=== PATIENT | male | born 1965 | race Caucasian/White ===

== ENCOUNTER → 2019-04-19 07:58 | Outpatient (CLI) | payer OTHER, MEDICAID, SELFPAY ==
[2019-04-19 09:09] LABS: Hematocrit 48.9 % (41-53); Hemoglobin 16.4 g/dL (13.5-17.5); Mean Corpuscular HGB Conc 33.5 % (30-36); Mean Corpuscular Hemoglobin 29.4 PG (26-34); Mean Corpuscular Volume 87.7 fL (80-100); Platelet Count 319 X10^3/uL (150-400); Red Blood Cell Count 5.58 X10^6/uL (4.5-5.9); Red Cell Distribution Width 13.8 % (11.6-14.8); White Blood Cell Count 10.2 X10^3/uL (4.5-11.0)
[2019-04-19 09:36] LABS: Alanine Aminotransferase 27 IU/L (21-72); Albumin 4.4 g/dL (3.5-5.0); Albumin Globulin Ratio 1.5 (1.0-2.8); Alkaline Phosphatase 53 U/L (38-126); Aspartate Aminotransferase 37 IU/L (17-59); BUN Creatinine Ratio 24.3 (6-22); Bilirubin Total 1.3 mg/dL (0.2-1.3); Blood Urea Nitrogen 17 mg/dL (9-20); Calcium 9.1 mg/dL (8.4-10.2); Carbon Dioxide 27 mmol/L (22-32); Chloride 98 mmol/L (98-107); Cholesterol 261 mg/dL (140-199); Estimated Glomerular Filt Rate > 60.0 mL/min (>60); Glucose 247 mg/dL (70-100); HDL Cholesterol 47 mg/dL (40-60); HEMOLYSIS < 15 (0-50); LDL Cholesterol Calculated 201 mg/dL (<100); Potassium 4.5 mmol/L (3.4-5.1); Sodium 135 mmol/L (137-145); Total Protein 7.4 g/dL (6.3-8.2); Triglycerides 66 mg/dL (35-150)
[2019-04-19 09:47] LABS: LDL Cholesterol Direct 197 mg/dL (<100)
[2019-04-19 16:05] LABS: Hemoglobin A1C% w Est Avg Glu 8.4 % (4.0-6.0)
== END ==
PROVIDERS: PCP Nurse Practitioner Family; Visit Provider Nurse Practitioner Family
DX: E10.9 Type 1 diabetes mellitus without complications (principal)
CPT/HCPCS: 36415; 80053; 80061; 83036; 83721; 85027

== ENCOUNTER 2024-02-24 10:58 | Emergency (ER) | payer OTHER, MEDICAID, SELFPAY ==
[2024-02-24] VITALS (23 sets, daily range): BP systolic 162–213; BP diastolic 74–115; PULSE 70–81; RESP 9–22; TEMP 37.1; O2SAT 95–99; BMI 27.1
--- NOTE | 2024-02-24 11:14 | DI.RAD.S_ITS ---
PROCEDURE: XR CHEST 1V INDICATIONS: Possible stroke TECHNIQUE: One view of the chest was acquired. COMPARISON: None. FINDINGS: Surgical changes and devices: None. Lungs and pleura: Lungs are clear. No pleural effusions or pneumothorax. Mediastinum: Mediastinal contours appear normal. Heart size is normal. Bones and chest wall: No suspicious bony lesions. Overlying soft tissues appear unremarkable. IMPRESSION: No acute cardiopulmonary abnormality is seen. Dictated by: Vin Dong M.D. on 02/24/2024 at 12:20 Approved by: Vin Dong M.D. on 02/24/2024 at 12:20
--- NOTE | 2024-02-24 11:15 | DI.CT.S_ITS ---
PROCEDURE: CT HEAD/BRAIN WO CON INDICATIONS: trouble speaking TECHNIQUE: Noncontrast 4.5 mm thick angled axial sections acquired from the foramen magnum to the vertex, with coronal and sagittal reformats. For radiation dose reduction, the following was used: automated exposure control, adjustment of mA and/or kV according to patient size. COMPARISON: [facility], CT, CT ANGIO HEAD AND NECK, 02/23/2024, 14:55. [facility], CT, CT HEAD/BRAIN WO/W CON, 02/23/2024, 14:55. FINDINGS: Image quality: Diagnostic. CSF spaces: Basal cisterns are patent. No extra-axial fluid collections. The ventricles are symmetric in size and shape. Brain: Stable areas of low density can be seen within the left frontal operculum and within the left frontal lobe, as seen on series 2 images 16 through 22. No definite superimposed hemorrhage is seen. No intracranial bleeds or masses. There is cerebral volume loss for age, with resultant ventricular and sulcal prominence. There are periventricular and deep white matter chronic small vessel ischemic changes. There is intracranial internal carotid artery atherosclerosis. Skull and face: Calvarium and visualized facial bones appear intact, without suspicious lesions. Sinuses: Visualized sinuses and mastoids are clear. IMPRESSION: Stable areas of low attenuation are seen on the left, without definite superimposed hemorrhage. Subacute infarct is suspected. Dictated by: Julio Mccray M.D. on 02/24/2024 at 10:40 Approved by: Julio Mccray M.D. on 02/24/2024 at 10:44
--- NOTE | 2024-02-24 11:31 | DI.MRI.S_ITS ---
PROCEDURE: MR HEAD/BRAIN WO CON INDICATIONS: aphaisa TECHNIQUE: Noncontrast axial T1 spin echo, axial T2 fast spin echo, sagittal and axial FLAIR, coronal T2 fast spin echo, axial gradient echo, axial diffusion and ADC through the brain. COMPARISON: [facility], CT, CT ANGIO HEAD AND NECK, 02/23/2024, 14:55. FINDINGS: Image quality: Excellent. CSF Spaces: Basal cisterns are patent. No extra-axial fluid collections. Ventricles are normal in size and shape. Brain: No intracranial masses or hemorrhage. Scott/white matter interface is normal. Brainstem appears normal. Diffusion-weighted images demonstrate moderate sized left MCA distribution infarct. There is restricted water diffusion present in the insula and left frontal lobe as well as a smaller area in the left posterior frontal parietal cortex. There is associated cytotoxic edema. The infarct relatively spares the deep white matter and focus is on the cortical brain. No evidence of hemorrhagic transformation. Minimal mass effect on the left lateral ventricle with trace midline shift measuring approximately 2 mm. No chronic ischemic insults. Normal intravascular flow voids are present. Skull and face: Calvarium has normal marrow signal. Orbits appear normal. Sinuses: Sinuses and mastoids are clear. IMPRESSION: 1. Left MCA distribution infarct as described above. Minimal mass effect on the left lateral ventricle and trace midline shift. No hemorrhagic transformation. Dictated by: Vin Dong M.D. on 02/24/2024 at 15:19 Approved by: Vin Dong M.D. on 02/24/2024 at 15:25
--- NOTE | 2024-02-24 11:46 | PC.NURSE ---
has been having symptoms for several days. code stoke not activated
--- NOTE | 2024-02-24 11:48 | ED.NEUROSD ---
HPI - Neuro Symptoms/Deficit General Chief Complaint: Neuro Symptoms/Deficit Stated Complaint: returning pt, trouble explaining what's wrong Time Seen by Provider: 02/24/24 11:10 Source: patient Mode of arrival: Ambulatory History of Present Illness HPI Narrative: Patient is a 59-year-old male history of insulin-dependent diabetes presents today for possible stroke. He was actually seen evaluated yesterday unfortunately the birthday was wrong so trying to merge the records. Patient is having a difficult time expressing why he was here. He had workup head CT CT angio and blood work he certainly was having some aphasia last known well was approximately 3 days ago, he eventually left against medical advice there was concern about an insulin pump he was given prescriptions for aspirin Plavix statin and losartan, he was evaluated by the hospitalist as well there is possible concern for cholangitis, with elevated bilirubin and AST. Today patient returns again difficulty expressing why he is here. Able to answer yes and no questions able to follow commands On Anticoagulants: No Related Data Allergies Allergy/AdvReac Type Severity Reaction Status Date / Time No Known Drug Allergies Allergy Verified 02/24/24 11:38 Review of Systems Hematologic/Lymphatic On Anticoagulants: No Patient History Social History Smoking Status: Never smoker Smoking Status: Never smoker Substance Use Type: marijuana Exam Initial Vital Signs Initial Vital Signs: Vital Signs Temperature 98.7 F 02/24/24 11:00 Pulse Rate 80 02/24/24 11:00 Respiratory Rate 18 02/24/24 11:00 Blood Pressure 213/90 H 02/24/24 11:00 Pulse Oximetry 98 02/24/24 11:00 Oxygen Delivery Method Room Air 02/24/24 11:00 GENERAL: Alert surprisingly well-appearing 59-year-old and in no acute distress. HEENT: Head atraumatic,EOMI, pupils reactive, face symmetric, moist mucous membranes CARDIOVASCULAR: Regular rate and rhythm without murmurs, rubs or gallops. RESPIRATORY: Breath sounds equal bilaterally, no wheezes rales or rhonchi. ABDOMEN: Soft, nontender. Normoactive bowel sounds all 4 quadrants. No guarding or rebound. EXTREMITIES: Normal range of motion, no clubbing or edema. Neurovascularly intact NEUROLOGICAL: Alert and oriented x4.Normal gait and speech. Cranial nerves II through XII grossly intact. Good [id number], good [id number], strength equal bilaterally, no slurring of speech with difficulty with word finding, sensation in tact to soft touch bilaterally, no visual changes, no facial droop SKIN: Warm, dry, no laceration, no petechiae, no rashes or lesions. Scores NIH Stroke Scale Level of Conciousness: Alert, keenly responsive Ask month/age: Answers neither question correctly, aphasic, stuporous, coma Open/close eyes, close hand: Performs both tasks correctly Best gaze horizontal: Normal Visual valdez: No visual loss Facial palsy: Normal symetrical movement Left arm drift: No drift for full 10 sec Right arm drift: No drift for full 10 sec Left leg drift: No drift for full 5 sec Right leg drift: No drift for full 5 sec Limb ataxia: Absent Sensory on face/arms/legs: Normal, no sensory loss Best language: Severe aphasia, not much is understood, fragmented Dysarthria: Normal Extinction or inattention: No abnormality Total NIH Stroke scale score: 4 Course Orders Ordered: ED Orders 02/24/24 11:42 Complete Blood Count AUTO DIFF Stat Comprehensive Metabolic Panel Stat ETOH [Ethanol (ETOH)] Stat Lipase Stat Magnesium Stat PTT Partial Thromboplastin Bubba Stat Pathologist Review (for CBC) Stat Prothrombin Time INR Stat Troponin & CK Cardiac Panel Stat 02/24/24 11:56 US abdomen limited Stat 02/24/24 12:06 EKG-12 Lead Stat 02/24/24 12:39 Consult to Speech Therapy Evaluate & Treat CT chest abd pel w con Stat Discontinued Medications Ondansetron HCl (Ondansetron 4 Mg/2 Ml Inj) 4 mg IV NOW PRN PRN Reason: Nausea And Vomiting Ondansetron HCl (Ondansetron 4 Mg Odt) 4 mg SL NOW PRN PRN Reason: Nausea And Vomiting Vital Signs Vital signs: Vital Signs - 8 hr 02/24/24 13:10 02/24/24 13:11 02/24/24 13:11 Pulse Rate 81 79 Respiratory Rate Blood Pressure 183/86 H Pulse Oximetry 95 97 02/24/24 13:13 02/24/24 13:13 02/24/24 13:30 Pulse Rate 76 72 Respiratory Rate Blood Pressure 177/85 H Pulse Oximetry 97 97 02/24/24 13:31 02/24/24 13:31 02/24/24 14:00 Pulse Rate 72 71 Respiratory Rate 21 Blood Pressure 171/79 H Pulse Oximetry 97 95 02/24/24 14:01 02/24/24 14:01 02/24/24 14:48 Pulse Rate 72 72 Respiratory Rate 20 19 Blood Pressure 162/74 H Pulse Oximetry 95 97 02/24/24 14:49 02/24/24 14:49 02/24/24 15:00 Pulse Rate 70 Respiratory Rate 18 Blood Pressure 191/88 H 181/85 H Pulse Oximetry 98 02/24/24 15:00 02/24/24 15:30 02/24/24 15:31 Pulse Rate 72 71 70 Respiratory Rate 18 14 9 L Blood Pressure Pulse Oximetry 97 99 97 02/24/24 15:31 02/24/24 16:00 02/24/24 16:00 Pulse Rate 76 Respiratory Rate 22 Blood Pressure 190/93 H 198/95 H Pulse Oximetry 99 02/24/24 16:30 02/24/24 16:31 02/24/24 16:31 Pulse Rate 78 75 Respiratory Rate 22 17 Blood Pressure 196/89 H Pulse Oximetry 98 97 MDM - Neuro Symptoms/Deficit Lab Data 02/24/24 11:42 02/24/24 11:42 Labs: Lab Results 02/24/24 Range/Units 11:42 WBC 11.3 H (4.5-11.0) X10^3/uL RBC 6.98 H (4.5-5.9) X10^6/uL Hgb 19.7 H (13.5-17.5) g/dL Hct 60.0 H (41-53) % MCV 87.0 (80-100) fL MCH 28.2 (26-34) PG MCHC 32.5 (30-36) % RDW 14.5 (11.6-14.8) % Plt Count 321 (150-400) X10^3/uL Neut % (Auto) Not Reportable Lymph % (Auto) Not Reportable [place] % (Auto) Not Reportable Eos % (Auto) Not Reportable Baso % (Auto) Not Reportable Lymph # (Auto) Not Reportable [place] # (Auto) Not Reportable Baso # (Auto) Not Reportable Total Counted 100 Seg Neutrophils % 79.0 H (38-70) % Lymphocytes % (Manual) 8.0 L (25-45) % Atypical Lymphs % 1.0 H ( - 0) % Monocytes % (Manual) 11.0 (2-11) % Basophils % (Manual) 1.0 (0-1) % Neutrophils # (Manual) 8927 H (1899-5509) /uL RBC Morphology Normal morphology PT 11.4 (9.4-12.5) SECONDS INR 1.0 (0.9-1.3) APTT 38 H (25.1-36.5) SECONDS Sodium 137 (137-145) mmol/L Potassium 4.0 (3.4-5.1) mmol/L Chloride 104 (98-107) mmol/L Carbon Dioxide 23 (22-32) mmol/L BUN 16 (9-20) mg/dL Creatinine 0.58 L (0.66-1.25) mg/dL Estimated GFR > 60 (>60) mL/min BUN/Creatinine Ratio 27.6 H (6-22) Glucose 171 H (80-110) mg/dL Calcium 9.3 (8.4-10.2) mg/dL Magnesium 1.7 (1.6-2.3) mg/dL Total Bilirubin 1.7 H (0.2-1.3) mg/dL AST 55 (17-59) IU/L ALT 36 (<50) IU/L Alkaline Phosphatase 53 (38-126) U/L Total Creatine Kinase 335 H (55-170) U/L Troponin I < 0.012 (0.01-0.034) ng/mL Total Protein 7.7 (6.3-8.2) g/dL Albumin 4.7 (3.5-5.0) g/dL Globulin 3.0 (1.7-4.1) g/dL Albumin/Globulin Ratio 1.6 (1.0-2.8) Lipase 347 H (23-300) U/L Ethyl Alcohol < 10 ( - 10) mg/dL Point of Care Testing Glucose POC 147 Urine Dip Bedside Urine Glucose Negative Bedside Urine Bilirubin - Negative Bedside Urine Ketone ++ 40 Urine Specific [place] 1.010 Bedside Urine Occult Blood - Negative Bedside Urine pH 6.0 Bedside Urine Protein - Negative Bedside Urine Urobilinogen - Negative Bedside Urine Nitrite - Negative Bedside Urine Leukocytes - Negative Esterase Imaging Data CT scan - head: Radiologist's Impression: PROCEDURE: CT HEAD/BRAIN WO CON INDICATIONS: trouble speaking TECHNIQUE: Noncontrast 4.5 mm thick angled axial sections acquired from the foramen magnum to the vertex, with coronal and sagittal reformats. For radiation dose reduction, the following was used: automated exposure control, adjustment of mA and/or kV according to patient size. COMPARISON: [facility], CT, CT ANGIO HEAD AND NECK, 02/23/2024, 14:55. [facility], CT, CT HEAD/BRAIN WO/W CON, 02/23/2024, 14:55. FINDINGS: Image quality: Diagnostic. CSF spaces: Basal cisterns are patent. No extra-axial fluid collections. The ventricles are symmetric in size and shape. Brain: Stable areas of low density can be seen within the left frontal operculum and within the left frontal lobe, as seen on series 2 images 16 through 22. No definite superimposed hemorrhage is seen. No intracranial bleeds or masses. There is cerebral volume loss for age, with resultant ventricular and sulcal prominence. There are periventricular and deep white matter chronic small vessel ischemic changes. There is intracranial internal carotid artery atherosclerosis. Skull and face: Calvarium and visualized facial bones appear intact, without suspicious lesions. Sinuses: Visualized sinuses and mastoids are clear. IMPRESSION: Stable areas of low attenuation are seen on the left, without definite superimposed hemorrhage. Subacute infarct is suspected. Dictated by: Julio Mccray M.D. on 02/24/2024 at 10:40 mr brain: Radiologist's Impression: PROCEDURE: MR HEAD/BRAIN WO CON INDICATIONS: aphaisa TECHNIQUE: Noncontrast axial T1 spin echo, axial T2 fast spin echo, sagittal and axial FLAIR, coronal T2 fast spin echo, axial gradient echo, axial diffusion and ADC through the brain. COMPARISON: [facility], CT, CT ANGIO HEAD AND NECK, 02/23/2024, 14:55. FINDINGS: Image quality: Excellent. CSF Spaces: Basal cisterns are patent. No extra-axial fluid collections. Ventricles are normal in size and shape. Brain: No intracranial masses or hemorrhage. Scott/white matter interface is normal. Brainstem appears normal. Diffusion-weighted images demonstrate moderate sized left MCA distribution infarct. There is restricted water diffusion present in the insula and left frontal lobe as well as a smaller area in the left posterior frontal parietal cortex. There is associated cytotoxic edema. The infarct relatively spares the deep white matter and focus is on the cortical brain. No evidence of hemorrhagic transformation. Minimal mass effect on the left lateral ventricle with trace midline shift measuring approximately 2 mm. No chronic ischemic insults. Normal intravascular flow voids are present. Skull and face: Calvarium has normal marrow signal. Orbits appear normal. Sinuses: Sinuses and mastoids are clear. IMPRESSION: 1. Left MCA distribution infarct as described above. Minimal mass effect on the left lateral ventricle and trace midline shift. No hemorrhagic transformation. Dictated by: Vin Dong M.D. on 02/24/2024 at 15:19 CT scan - abdomen/pelvis: Radiologist's Impression: PROCEDURE: CT CHEST ABD PEL W CON INDICATIONS: kidney mass TECHNIQUE: After the administration of intravenous contrast, 5 mm thick sections acquired from the lung apices to the symphysis. 5 mm coronal and sagittal reformats were performed, with additional 7 mm MIP reformats through the lungs. For radiation dose reduction, the following was used: automated exposure control, adjustment of mA and/or kV according to patient size. COMPARISON: None. FINDINGS: Image quality: Excellent. CHEST: Lower Neck: No enlarged lymph nodes. Thyroid: No thyroid nodules which require sonographic follow up, per consensus guidelines. Axillae: No enlarged lymph nodes. Chest Wall: Unremarkable. Lungs and Pleura: No pneumothorax or pleural effusions. Findings are highly suspicious for pulmonary metastatic disease. Rn Teacher nodules are as follows--all described on series 5: 1. 3 mm right upper lobe, image 144. 2 and 3: 6 mm pulmonary nodules immediately subjacent to each other, inferior right upper lobe, image 167. 4. 4 mm pulmonary nodule, subpleural location, posterior right lower lobe, image 148. 5. 6 mm pulmonary nodule, posterior right middle lobe, image 196. 7. 6 x 10 mm pulmonary nodule, inferior lingula of left lung, image 232. 8. Pleural based anterior medial left upper lobe pulmonary nodule, image 117. 9. 4 mm subpleural pulmonary nodule, posterior left lower lobe, image 249. Heart: Heart size is normal. No pericardial effusion. Thoracic Vessels: The aorta and pulmonary arteries demonstrate normal size. Mediastinum and Arelis: No enlarged lymph nodes. Esophagus: No wall thickening. No hiatal hernia. ABDOMEN: Liver: No solid mass. Gallbladder: No radiopaque gallstones or wall thickening. Biliary ducts: No biliary dilation. Pancreas: No ductal dilation. Spleen: Size is within normal limits. Adrenal Glands: No adrenal nodules. Kidneys and Ureters: Very large renal cell carcinoma of the right kidney measuring 12.2 x 10.1 x 9.7 cm. There are hypertrophied vessels surrounding this mass. Potential involvement injury road is fascia. No invasion of the right renal vein identified. Stomach and Bowel: Normal colonic caliber, without significant wall thickening. Peritoneum: No abnormal intraperitoneal fluid. No free air. Ventral Wall: No significant ventral hernia. Abdominal Nodes: No retroperitoneal or mesenteric adenopathy by size criteria. Vessels: Aorta and inferior vena cava are normal in size. PELVIS: Pelvic Organs: Unremarkable. Bladder: No bladder wall thickening, accounting for underdistention. Pelvic Nodes: No enlarged lymph nodes. Miscellaneous: No inguinal hernias are seen. Bones: No aggressive osseous abnormality. IMPRESSION: 1. Very large renal cell carcinoma of the right kidney with possible extension into geode is fat. 2. No evidence of metastatic disease in the abdomen and pelvis. No invasion into the subjacent right renal vein. 3. Numerous pulmonary nodules. Suspect metastatic disease. Metastatic disease is not definite. Comment: Recommend follow-up CT in 3 months to document stability or growth of pulmonary nodules. Dictated by: Vin Dong M.D. on 02/24/2024 at 13:21 US - abdomen: Radiologist's Impression: PROCEDURE: US ABDOMEN LIMITED INDICATIONS: ELEVATED BILIRUBIN; RUQ PAIN TECHNIQUE: Real-time focused scanning was performed of the abdomen, with image documentation. COMPARISON: None. FINDINGS: The liver is normal in size and demonstrates no suspicious lesions. No findings of gallstones or sludge are seen. The gallbladder wall is not thickened, measuring 3 mm or less. No specific pericholecystic fluid is seen. The sonographic Eller sign is negative. There is no biliary dilatation, the common bile duct measures 4-5 mm. The pancreas is not well seen. The right kidney is abnormal, with an irregular mass along its midportion, measuring 10.6 x 9.2 x 10.2 cm. IMPRESSION: No imaging explanation is found for this patient's presenting symptoms. Note is made a 10.6 cm right renal mass. The scheduled follow-up CT is expected to provide additional diagnostic information. Dictated by: Julio Mccray M.D. on 02/24/2024 at 12:0 MDM Narrative Medical decision making narrative: MDM CC: Difficulty speaking Complicating co-morbidities: Diabetes Corroborating data: [ ] Data collected from: Previous chart from yesterday despite wrong birthday I was able to look up notes from providers imaging and blood work Medical records reviewed: Yes Differential considered: [ ] Exam documented above, pertinent findings include: Expressive aphasia no other focal deficits Lab Test results independently reviewed as above. Pertinent findings: WBC 11.3, hemoglobin 19.7, hematocrit 60, platelets 321, sodium 137 potassium 4.0 chloride 104 carbon dioxide 23, BUN 16 Independently reviewed EKG as above Imaging studies independently reviewed: MRI shows left MCA stroke, ultrasound concern for right renal mass, CT chest abdomen pelvis reports multiple pulmonary nodules with very large presumed right renal cell carcinoma Consultations: Dr. Tatum and briefly consulted reports that stroke has been stable for the last 4 days does need some speech therapy outpatient echo but does not need to be admitted for his stroke an outpatient cancer workup is appropriate 1399 Dr. Davidson urology at you do aware and will call back when he is out of surgery 1499 Dr. Davidson updated on patient's symptoms test results states that patient would likely benefit from the multi disciplinary kidney cancer clinic with [facility] may require a nephrectomy. However with his acute stroke needs to be taken care of 1599 Dr. Madsen, updated on patient's test results Treatments: Patient reports he took aspirin prior to arrival he also took his blood pressure medication Re-evaluations: [ ] Discussion: Patient presents today with ongoing aphasia for the last 3-4 days. Concern for stroke yesterday. MRI today confirms stroke. He unfortunately was also found to have renal cell carcinoma with probable Mets with pulmonary. [facility] urology has been made aware of this patient PCP has been made aware and will put in an official referral. She will also follow-up for ongoing speech therapy and further outpatient stroke workup. Patient is noted to b hemoconcentrated with a hemoglobin 19.7 and hematocrit of 60. This is similar to blood work from yesterday. Again patient got the wrong date yesterday charts have yet to be merged I have explained results to patient he understands that he needs to have follow-up appointment has been made for him by myself for next week. He seems to understand but does have obvious expressive aphasia and difficulty time speaking. He reports he did take off his medication this morning. He has no new deficits. speech 1400 uw 1500 1600 Critical Care Time Critical Care Time Critical Care Time: Yes Total Critical Care Time: 35 Attestation: The high probability of a clinically significant, sudden or life threatening deterioration of the neurologic multiple physician I spoke with [ ] about recent symptoms, lab results and current treatments. [He] agrees to [inpatient/observation] and will see the patient in the [hospital]. system(s) required my full and direct attention, intervention and personal management. The aggregate critical care time was 35 minutes. This time is in addition to time spent performing reported procedures but includes the following: [x] Data Review and interpretation [x] Patient assessment and monitoring of vital signs [x] Documentation [x] Medication orders and management Discharge Plan Departure Patient Disposition: Home Clinical Impression: Cerebrovascular accident, Renal cell carcinoma Instructions: Kidney Cancer, DI for Stroke-Ischemic Activity Restrictions/Additional Instructions: *You have been diagnosed with stroke and renal cell carcinoma *What to do: At this time he will need speech therapy and echocardiogram for further evaluation of your stroke. You were also unfortunately found to have a very large right renal mass, you will need further evaluation with Oncology *Continue to take medications as directed Be sure to take your blood pressure medication losartan aspirin Plavix, *Follow up with your primary care provider in 2-3 days or call [phone] Josy Elena [address] [place] [address] *Return to ER if you should have increasing confusion pain weakness or any new, worsening or concerning symptoms Referrals: Clair Maddox ARNP [Primary Care Provider] - Stand Alone Forms: Patient Portal/API
[2024-02-24 11:51] LABS: Hemoglobin 19.7 g/dL (13.5-17.5); Mean Corpuscular HGB Conc 32.5 % (30-36); Mean Corpuscular Hemoglobin 28.2 PG (26-34); Platelet Count 321 X10^3/uL (150-400); Red Blood Cell Count 6.98 X10^6/uL (4.5-5.9); Red Cell Distribution Width 14.5 % (11.6-14.8); White Blood Cell Count 11.3 X10^3/uL (4.5-11.0)
[2024-02-24 11:53] LABS: Add Manual Diff / Slide Review YES
--- NOTE | 2024-02-24 11:56 | DI.US.S_ITS ---
PROCEDURE: US ABDOMEN LIMITED INDICATIONS: ELEVATED BILIRUBIN; RUQ PAIN TECHNIQUE: Real-time focused scanning was performed of the abdomen, with image documentation. COMPARISON: None. FINDINGS: The liver is normal in size and demonstrates no suspicious lesions. No findings of gallstones or sludge are seen. The gallbladder wall is not thickened, measuring 3 mm or less. No specific pericholecystic fluid is seen. The sonographic Eller sign is negative. There is no biliary dilatation, the common bile duct measures 4-5 mm. The pancreas is not well seen. The right kidney is abnormal, with an irregular mass along its midportion, measuring 10.6 x 9.2 x 10.2 cm. IMPRESSION: No imaging explanation is found for this patient's presenting symptoms. Note is made a 10.6 cm right renal mass. The scheduled follow-up CT is expected to provide additional diagnostic information. Dictated by: Julio Mccray M.D. on 02/24/2024 at 12:02 Approved by: Jluio Mccray M.D. on 02/24/2024 at 12:04
[2024-02-24 12:01] LABS: Alanine Aminotransferase 36 IU/L (<50); Albumin 4.7 g/dL (3.5-5.0); Albumin Globulin Ratio 1.6 (1.0-2.8); Alkaline Phosphatase 53 U/L (38-126); Aspartate Aminotransferase 55 IU/L (17-59); BUN Creatinine Ratio 27.6 (6-22); Bilirubin Total 1.7 mg/dL (0.2-1.3); Blood Urea Nitrogen 16 mg/dL (9-20); Calcium 9.3 mg/dL (8.4-10.2); Carbon Dioxide 23 mmol/L (22-32); Chloride 104 mmol/L (98-107); Creatine Kinase 335 U/L (55-170); Estimated Glomerular Filt Rate > 60 mL/min (>60); Glucose 171 mg/dL (80-110); HEMOLYSIS 42 (0-50); Magnesium 1.7 mg/dL (1.6-2.3); Sodium 137 mmol/L (137-145); Total Protein 7.7 g/dL (6.3-8.2)
[2024-02-24 12:03] LABS: Prothrombin Time 11.4 SECONDS (9.4-12.5)
[2024-02-24 12:05] LABS: PTT Partial Thromboplastin Tim 38 SECONDS (25.1-36.5)
[2024-02-24 12:12] LABS: Ethanol (ETOH) < 10 mg/dL; Troponin I < 0.012 ng/mL (0.01-0.034)
[2024-02-24 12:14] LABS: Lipase 347 U/L (23-300)
[2024-02-24 12:19] LABS: Neutrophils Absolute Manual 8927 /uL (3000-5900); RBC Morphology Normal Morphology; Total Cells Counted 100
--- NOTE | 2024-02-24 12:39 | DI.CT.S_ITS ---
PROCEDURE: CT CHEST ABD PEL W CON INDICATIONS: kidney mass TECHNIQUE: After the administration of intravenous contrast, 5 mm thick sections acquired from the lung apices to the symphysis. 5 mm coronal and sagittal reformats were performed, with additional 7 mm MIP reformats through the lungs. For radiation dose reduction, the following was used: automated exposure control, adjustment of mA and/or kV according to patient size. COMPARISON: None. FINDINGS: Image quality: Excellent. CHEST: Lower Neck: No enlarged lymph nodes. Thyroid: No thyroid nodules which require sonographic follow up, per consensus guidelines. Axillae: No enlarged lymph nodes. Chest Wall: Unremarkable. Lungs and Pleura: No pneumothorax or pleural effusions. Findings are highly suspicious for pulmonary metastatic disease. Cable Dispatcher nodules are as follows--all described on series 5: 1. 3 mm right upper lobe, image 144. 2 and 3: 6 mm pulmonary nodules immediately subjacent to each other, inferior right upper lobe, image 167. 4. 4 mm pulmonary nodule, subpleural location, posterior right lower lobe, image 148. 5. 6 mm pulmonary nodule, posterior right middle lobe, image 196. 7. 6 x 10 mm pulmonary nodule, inferior lingula of left lung, image 232. 8. Pleural based anterior medial left upper lobe pulmonary nodule, image 117. 9. 4 mm subpleural pulmonary nodule, posterior left lower lobe, image 249. Heart: Heart size is normal. No pericardial effusion. Thoracic Vessels: The aorta and pulmonary arteries demonstrate normal size. Mediastinum and Arelis: No enlarged lymph nodes. Esophagus: No wall thickening. No hiatal hernia. ABDOMEN: Liver: No solid mass. Gallbladder: No radiopaque gallstones or wall thickening. Biliary ducts: No biliary dilation. Pancreas: No ductal dilation. Spleen: Size is within normal limits. Adrenal Glands: No adrenal nodules. Kidneys and Ureters: Very large renal cell carcinoma of the right kidney measuring 12.2 x 10.1 x 9.7 cm. There are hypertrophied vessels surrounding this mass. Potential involvement injury road is fascia. No invasion of the right renal vein identified. Stomach and Bowel: Normal colonic caliber, without significant wall thickening. Peritoneum: No abnormal intraperitoneal fluid. No free air. Ventral Wall: No significant ventral hernia. Abdominal Nodes: No retroperitoneal or mesenteric adenopathy by size criteria. Vessels: Aorta and inferior vena cava are normal in size. PELVIS: Pelvic Organs: Unremarkable. Bladder: No bladder wall thickening, accounting for underdistention. Pelvic Nodes: No enlarged lymph nodes. Miscellaneous: No inguinal hernias are seen. Bones: No aggressive osseous abnormality. IMPRESSION: 1. Very large renal cell carcinoma of the right kidney with possible extension into geode is fat. 2. No evidence of metastatic disease in the abdomen and pelvis. No invasion into the subjacent right renal vein. 3. Numerous pulmonary nodules. Suspect metastatic disease. Metastatic disease is not definite. Comment: Recommend follow-up CT in 3 months to document stability or growth of pulmonary nodules. Dictated by: Vin Dong M.D. on 02/24/2024 at 13:21 Approved by: Vin Dong M.D. on 02/24/2024 at 13:31
--- NOTE | 2024-02-24 16:04 | PM.CALLCOV.1 ---
Call Coverage Note Note Date of Patient Contact: 02/24/24 Narrative of Care Provided: This is a 59 year old male, he presented yesterday with slurred speech, was to be admitted but left against medical advice. He presented again today. He has had no progression of symptoms. Abdominal ultrasound for elevated bilirubin showed possible RCC. MRI did confirm an infarct. His BP is improved from yesterday. Given clinical stability of symptoms, recommendation is for outpatient speech therapy, and continued medication management with DAPT for 21 days, statin therapy, and BP management. There is no benefit to observation admission at this time. He will need close follow up with PCP for further evaluation of his likely RCC, stroke, hypertension management, and erythrocytosis. Outpatient echocardiogram and holter monitor is recommended as well to complete evaluation for his acute CVA.
== END 2024-02-24 16:52 | disposition home or self-care (01) ==
PROVIDERS: Emergency Provider Emergency Medicine; PCP Nurse Practitioner Family
DX: I63.9 Cerebral infarction, unspecified (principal); C64.9 Malignant neoplasm of unspecified kidney, except renal pelvis; R29.704 NIHSS score 4
CPT/HCPCS: 36415; 70450; 70551; 71045; 71260; 74177; 76705; 80053; 80320; 81003; 82550; 82962; 83690; 83735; 84484; 85007; 85025; 85610; 85730; 93005; 99283; 99284; 99285; Q9967

== ENCOUNTER 2024-03-19 09:00 | Outpatient (RCR) | payer OTHER, MEDICAID, SELFPAY ==
--- NOTE | 2024-02-28 09:07 | ST.OPIE ---
Visit Care Team Role Provider Type SOLEDAD Wilder Primary Care Provider Non-Staff Specialty: Family Practice Address: [address] [facility], [place], [address] Email: Claudia Flores DO Attending Provider Physician Referring Provider Specialty: Emergency Medicine Address: [address] [place] [address], [id number] Email: [email or web address] Speech-Language Pathology Initial Evaluation STAGE BUILDER Adult Cognitive Linguistic Eval Start: 02/27/24 10:04 Freq: Status: Active Protocol: Document 02/27/24 10:04 DONALD (Rec: 02/27/24 10:05 DONALD [id number]) Adult Cognitive Linguistic Evaluation Session Time Visit Start Time 09:00 Visit Stop Time 09:45 Total Visit Minutes 45 Visit Information Visit Number Initial Evaluation Plan of Care Dates 02/27/24-05/28/24 Insurance Information [facility] Referral Referring Provider Dr. Flores Reason for Referral CVA Setting Assessment Location Outpatient Care Visit Type Note Type Initial evaluation Next Note Type Next Note Type Treatment Note Patient Information Identification Type Name Patient History Pt is a 59 year old male seen this date for speech/language evaluation s/p CVA, which occurred on 02/23/24. He states he started to notice symptoms a few days before going to the ED, which included difficulties speaking. He arrived to the evaluation alone and demonstrates continued difficulties communicating, however ST able to figure out Pt's timeline given increased time for Pt to communicate and review of hospital notes. He has a hx of insulin dependent diabetes. During hospital stay Pt was found to have had a stroke. A large right renal mass was also found and he is in the process of following up with oncology. 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 He is also going to be following up with a neurologist. Again, it was difficult to figure out everything Pt was trying to say given expressive aphasia. He reports his speech is a little better but basically the same since he presented to the ED. Hearing Hearing Level Normal Vision Vision Status Impaired Comments Wears glasses Previous Therapy Previous Speech-Language Therapy No Subjective Patient Report See Patient History Assessment Oral Motor Examination Completed Yes Results Pt able to follow commands to complete oral motor exam. Oral motor exam revealed oromusculature WFL. Informal Assessment Expressive Language Normal No Expressive Language Impairment(s) Sentence closure/completion, Expression of basic wants/ needs,Expression of complex thoughts/ideas Formal Assessment Standardized Test/Screener Type Quick Aphasia Battery (QAB) Results ST administered the Quick Aphasia Battery (QAB) with Pt scoring a total 6.95 indicating a severity rating of moderate deficit related to aphasia. He scored the following on each section: Word comprehension 9.17 Sentence comprehension 6.67 Word finding 3.00 Grammatical construction 5.25 Speech motor programming 10.00 Repetition 8.33 Reading 8.75 He demonstrated strengths in word comprehension and reading and most deficits in word finding. He demonstrated mild difficulties with some comprehension tasks, however most deficits appeared during expressive language tasks. He was able to answer most Y/N questions, however some difficulties with increasing complexity. Findings/Results Language Function Moderately impaired Cognitive Function Within functional limits Findings Pt presents with moderate expressive aphasia. His expressive language is characterized by occasional paraphasias (stating fishing instead of painting), word finding difficulties, vague language with semantic words close to target, difficulties fully expressing complex thoughts, occasional telegraphic speech. He appeared with increased fatigue as evaluation progressed. He wa able to write his name, however unable to write the date or his address. He reported numbers have been difficult. He exhibited difficulties expressing how old he is, however was able to answer Y/N questions regarding his age with 100% accuracy. He benefited from phonemic and semantic cues during word finding. He occasionally would decribe a picture by stating a part of it vs the whole picture (e.g., stating eraser for pencil). He appeared with good awareness into his deficits. He communicated primarily verbally, however also utilized gestures. ST did not fully assess cognition, however informally Pt appears WFL. Further testing will be provided if warranted. Cognitive Communication Deficits Self-awareness of Cognitive- Predictive awareness (able to Communication Deficits predict problem; impact of impairments) Concomitant Factors Concomitant Factors Visual field neglect Comment Report some right sided visual difficulties Prognosis Prognosis Good Based on Cognitive status,Duration of symptoms/severity,Time since onset Plan of Care Speech-Language Treatment Yes Frequency 1-2x/week Duration 3-6 months Patient/Caregiver Education Described results of evaluation,Patient expressed understanding of evaluation, Patient expressed agreement with goals and treatment plans ,Patient requires further education/training Short Term Goals STG 1: Patient will complete simple sentences with use of compensatory strategies with 80% accuracy and mod cues. STG 2: Patient will complete automatic speech tasks with 80 % accuracy and mod cues. STG 3: Patient will name/ describe objects/pictures with 80% accuracy and mod cues for forced choice, phonemic/ semantic cueing, gestural/ contextual cues. Shelter Goals LTG 1: Patient will develop functional, cognitive- linguistic-based skills and utilize compensatory strategies to communicate wants and needs effectively to different conversational partners, maintain safety and participate socially in functional living environment Discharge Recommendations Home
--- NOTE | 2024-02-28 09:07 | ST.OPPOC ---
Physical, Occupational & Speech Therapy At [facility] Visit Care Team Role Provider Type SOLEDAD Wilder Primary Care Provider Non-Staff Address: [address] [facility], [place], [address] Claudia Flores DO Attending Provider Physician Referring Provider Address: [address] [place] [address], [id number] Speech Pathology Plan of Care Plan of Care Dates 02/27/24-05/28/[address] Flores Patient History Pt is a 59 year old male seen this date for speech/language evaluation s/p CVA, which occurred on 02/23/24. He states he started to notice symptoms a few days before going to the ED, which included difficulties speaking. He arrived to the evaluation alone and demonstrates continued difficulties communicating, however ST able to figure out Pt's timeline given increased time for Pt to communicate and review of hospital notes. He has a hx of insulin dependent diabetes. During hospital stay Pt was found to have had a stroke. A large right renal mass was also found and he is in the process of following up with oncology. 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 He is also going to be following up with a neurologist. Again, it was difficult to figure out everything Pt was trying to say given expressive aphasia. He reports his speech is a little better but basically the same since he presented to the ED. Self-awareness of Cognitive- Predictive awareness (abl Communication Deficits Short Term Goals STG 1: Patient will complete simple sentences with use of compensatory strategies with 80% accuracy and mod cues. STG 2: Patient will complete automatic speech tasks with 80% accuracy and mod cues. STG 3: Patient will name/describe objects/ pictures with 80% accuracy and mod cues for forced choice, phonemic/semantic cueing, gestural/contextual cues. Photo Machine Operator Goals LTG 1: Patient will develop functional, amrplfiyv-vqxtkbpfse-ldrko skills and utilize compensatory strategies to communicate wants and needs effectively to different conversational partners, maintain safety and participate socially in functional living environment Comment: Electronically Signed by: LAMIN Aj 04/23/24 0907 If you are in agreement with this Plan of Care, please return a signed and dated copy. I have reviewed this Plan of Care and certify that the skilled therapy services above are required to meet the patient?s needs. Physician Signature Date Printed Name and Credentials Clinical Instructor Signature Printed Name and Credentials
--- NOTE | 2024-03-13 09:46 | ST.OPTN ---
Visit Care Team Role Provider Type SOLEDAD Wilder Primary Care Provider Non-Staff Address: [address] [place] [address], [place], [address] Claudia Flores DO Attending Provider Physician Referring Provider Address: [address] [place] [address], [id number] HARDWARE ENGINEERING MANAGER Treatment Note HARDWARE ENGINEERING MANAGER Treatment Note Start: 03/13/24 09:37 Freq: Status: Active Protocol: Document 03/13/24 09:37 MA (Rec: 03/13/24 09:46 MA [id number]) Speech Pathology Treatment Note Session Time Visit Start Time 09:00 Visit Stop Time 09:35 Total Visit Minutes 35 Visit Information Visit Number 2 Plan of Care Dates 02/27/24-05/28/24 Setting Treatment Setting Outpatient Care Next Note Type Next Note Type Treatment Note General Information Patient History Pt is a 59 year old male seen this date for speech/language evaluation s/p CVA, which occurred on 02/23/24. He states he started to notice symptoms a few days before going to the ED, which included difficulties speaking. He arrived to the evaluation alone and demonstrates continued difficulties communicating, however ST able to figure out Pt's timeline given increased time for Pt to communicate and review of hospital notes. He has a hx of insulin dependent diabetes. During hospital stay Pt was found to have had a stroke. A large right renal mass was also found and he is in the process of following up with oncology. 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 He is also going to be following up with a neurologist. Again, it was difficult to figure out everything Pt was trying to say given expressive aphasia. He reports his speech is a little better but basically the same since he presented to the ED. Subjective Observations/Patient Presentation Pt arrived to therapy on time. He reports he has an appointment with his oncologist on this week. Objective Short Term Goals STG 1: Patient will complete simple sentences with use of compensatory strategies with 80% accuracy and mod cues. STG 2: Patient will complete automatic speech tasks with 80 % accuracy and mod cues. STG 3: Patient will name/ describe objects/pictures with 80% accuracy and mod cues for forced choice, phonemic/ semantic cueing, gestural/ contextual cues. Dermatology Specialist Goals LTG 1: Patient will develop functional, cognitive- linguistic-based skills and utilize compensatory strategies to communicate wants and needs effectively to different conversational partners, maintain safety and participate socially in functional living environment Treatment Activities Receptive/expressive language tasks Assessment Patient Response to Treatment Excellent Rehab Potential Excellent Impairments Identified Expressive language,Receptive language Progress Towards Goals Good Progress Assessment of Overall Progress Improving Assessment of Improvement Pt reports his speech has improved since last seen, however states there are still things that are difficult to communicate. He is able to speek in full sentences, however language appears vague /general at times. He reports continued difficulties texting d/t writing deficits and states spell check doesn't help at times. He states he is currently working. He reports tasks that he came natural to him before have been very difficult to do/initiate such as water color, gardening, play the guitar. ST communicated plan to refer him to OT. Pt verbalized understanding. He reports some people have pointed out his communication issue. He reports he has been practicing talking a little bit each day . ST encouraged Pt to practice talking as much as possible each day, even if he has to read at home outloud. He reports continued difficulties comprehending/writing numbers . ST assessed number comprehension by asking temporal/biographical information and utilizing number ID task. Pt was able to identify numbers with 100% accuracy. He demonstrated slight difficulty identifing a number with a F08, which ST suspects is d/t right visual neglect d/t Pt stating I can' t see all of the right side and stating it appears swirly . He was able to write down his correct address number. He demonstrated difficulties writing down his phone number and benefited from a verbal cue of his area code. He demonstrated difficulties stating/writing down the year, however was able to state birthday with 100% accuracy. He reports difficulties with his blood sugar monitor, specifically due to the numbers, however not entirely clear what difficulties he is having d/t language barrier. ST assessed reading/ comprehension utilizing sentence matching task with Pt completing it was 90% accuracy given 1x verbal cue. He was able to state the correct month utilizing method of starting from November and naming months until he got to the correct one. He was able to write [place] name correctly [place] with minor spelling errors. He states sometimes he writes/ says something that is correct , however he does not know it is correct. ST to continue to target receptive/expressive language.
--- NOTE | 2024-03-19 09:44 | ST.OPTN ---
Visit Care Team Role Provider Type SOLEDAD Wilder Primary Care Provider Non-Staff Address: [address] [place] [address], [place], [address] Claudia Flores DO Attending Provider Physician Referring Provider Address: [address] [place] [address], [id number] SHRUB PLANTER Treatment Note SHRUB PLANTER Treatment Note Start: 03/13/24 09:37 Freq: Status: Active Protocol: Document 03/19/24 09:38 MA (Rec: 03/19/24 09:44 MA [id number]) Speech Pathology Treatment Note Session Time Visit Start Time 09:00 Visit Stop Time 09:35 Total Visit Minutes 35 Visit Information Visit Number 3 Plan of Care Dates 02/27/24-05/28/24 Setting Treatment Setting Outpatient Care Next Note Type Next Note Type Treatment Note General Information Patient History Pt is a 59 year old male seen this date for speech/language evaluation s/p CVA, which occurred on 02/23/24. He states he started to notice symptoms a few days before going to the ED, which included difficulties speaking. He arrived to the evaluation alone and demonstrates continued difficulties communicating, however ST able to figure out Pt's timeline given increased time for Pt to communicate and review of hospital notes. He has a hx of insulin dependent diabetes. During hospital stay Pt was found to have had a stroke. A large right renal mass was also found and he is in the process of following up with oncology. 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 He is also going to be following up with a neurologist. Again, it was difficult to figure out everything Pt was trying to say given expressive aphasia. He reports his speech is a little better but basically the same since he presented to the ED. Subjective Observations/Patient Presentation Pt arrived to therapy on time. He reports no changes with speech compared to last session. Objective Short Term Goals STG 1: Patient will complete simple sentences with use of compensatory strategies with 80% accuracy and mod cues. STG 2: Patient will complete automatic speech tasks with 80 % accuracy and mod cues. STG 3: Patient will name/ describe objects/pictures with 80% accuracy and mod cues for forced choice, phonemic/ semantic cueing, gestural/ contextual cues. Senior Living Goals LTG 1: Patient will develop functional, cognitive- linguistic-based skills and utilize compensatory strategies to communicate wants and needs effectively to different conversational partners, maintain safety and participate socially in functional living environment Treatment Activities Word finding tasks Assessment Patient Response to Treatment Excellent Rehab Potential Excellent Impairments Identified Expressive language,Receptive language Progress Towards Goals Good Progress Assessment of Overall Progress Improving Assessment of Improvement Pt reports he saw an oncologist last . He demonstrated difficulties communicating specific details about appointment, however it sounds like he will be starting treatment consisting of a meedication for the tumor , however they have to see if his insurance will cover it. He was able to self correct x3 when communicating numbers, such as what [place] ferry to come to therapy. He was able to state the month and day of the week with use of counting strategy (e.g., stating all the months of the year and days of the week). He required cue to initate stating days of the week. He is able to speek in full sentences, however language appears vague/general at times . He reports continued difficulties texting d/t writing deficits and states spell check doesn't help at times. He states he is currently working. ST educated Pt on word finding strategies such as circumlocution/describing a word. ST assessed use of word finding strategies during picture naming task in order to promote carryover. He was able to name pictures with about 70% accuracy requiring mild-mod semantic/phonemic cues. He benefited most from cues to describe details about the picture (semantic features such as color, shape, use) and phonemic cues of first letter. He benefited from practice describing details in a picture. He exhibited occasional paraphasias, however able to self correct. Pt has good awareness with his language errors, however delay in self correcting at times. ST encouraged Pt to practice using circumlocution outside of therapy when talking with others. Pt verbalized understanding.
--- NOTE | 2024-04-16 10:50 | ST.OPPOC ---
Physical, Occupational & Speech Therapy At [facility] Visit Care Team Role Provider Type SOLEDAD Wilder Primary Care Provider Non-Staff Address: [address] [facility], [place], [address] Claudia Flores DO Attending Provider Physician Referring Provider Address: [address] [place] [address], [id number] Speech Pathology Plan of Care Plan of Care Dates 02/27/24-05/28/[address] Flores Patient History Pt is a 59 year old male seen this date for speech/language evaluation s/p CVA, which occurred on 02/23/24. He states he started to notice symptoms a few days before going to the ED, which included difficulties speaking. He arrived to the evaluation alone and demonstrates continued difficulties communicating, however ST able to figure out Pt's timeline given increased time for Pt to communicate and review of hospital notes. He has a hx of insulin dependent diabetes. During hospital stay Pt was found to have had a stroke. A large right renal mass was also found and he is in the process of following up with oncology. 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 He is also going to be following up with a neurologist. Again, it was difficult to figure out everything Pt was trying to say given expressive aphasia. He reports his speech is a little better but basically the same since he presented to the ED. Impairments Identified Expressive language,Receptive language Progress Towards Goals Good Progress Self-awareness of Cognitive- Predictive awareness (abl Communication Deficits Short Term Goals STG 1: Patient will complete simple sentences with use of compensatory strategies with 80% accuracy and mod cues. STG 2: Patient will complete automatic speech tasks with 80% accuracy and mod cues. STG 3: Patient will name/describe objects/ pictures with 80% accuracy and mod cues for forced choice, phonemic/semantic cueing, gestural/contextual cues. Skilled Nursing Goals LTG 1: Patient will develop functional, lqkfnhfsi-[id number]-pkpeu skills and utilize compensatory strategies to communicate wants and needs effectively to different conversational partners, maintain safety and participate socially in functional living environment Comment: Please sign and return DIANA. Thank you! Electronically Signed by: LAMIN Aj 04/16/24 [id number] If you are in agreement with this Plan of Care, please return a signed and dated copy. I have reviewed this Plan of Care and certify that the skilled therapy services above are required to meet the patient?s needs. Physician Signature Date Printed Name and Credentials Clinical Instructor Signature Printed Name and Credentials
--- NOTE | 2024-04-25 09:41 | ST.OPDS ---
Visit Care Team Role Provider Type SOLEDAD Wilder Primary Care Provider Non-Staff Address: [address] [place] [address], [place], [address] Claudia Flores DO Attending Provider Physician Referring Provider Address: [address] [place] [address], [id number] SECRETARY Treatment Note SECRETARY Treatment Note Start: 03/13/24 09:37 Freq: Status: Active Protocol: Document 03/19/24 09:38 MA (Rec: 03/19/24 09:44 MA [id number]) Speech Pathology Treatment Note Session Time Visit Start Time 09:00 Visit Stop Time 09:35 Total Visit Minutes 35 Visit Information Visit Number 3 Plan of Care Dates 02/27/24-05/28/24 Setting Treatment Setting Outpatient Care Next Note Type Next Note Type Treatment Note General Information Patient History Pt is a 59 year old male seen this date for speech/language evaluation s/p CVA, which occurred on 02/23/24. He states he started to notice symptoms a few days before going to the ED, which included difficulties speaking. He arrived to the evaluation alone and demonstrates continued difficulties communicating, however ST able to figure out Pt's timeline given increased time for Pt to communicate and review of hospital notes. He has a hx of insulin dependent diabetes. During hospital stay Pt was found to have had a stroke. A large right renal mass was also found and he is in the process of following up with oncology. 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 He is also going to be following up with a neurologist. Again, it was difficult to figure out everything Pt was trying to say given expressive aphasia. He reports his speech is a little better but basically the same since he presented to the ED. Subjective Observations/Patient Presentation Pt arrived to therapy on time. He reports no changes with speech compared to last session. Objective Short Term Goals STG 1: Patient will complete simple sentences with use of compensatory strategies with 80% accuracy and mod cues. -NOT MET STG 2: Patient will complete automatic speech tasks with 80 % accuracy and mod cues.- NOT MET STG 3: Patient will name/ describe objects/pictures with 80% accuracy and mod cues for forced choice, phonemic/ semantic cueing, gestural/ contextual cues.- NOT MET Roll Edge Machine Operator Goals LTG 1: Patient will develop functional, cognitive- linguistic-based skills and utilize compensatory strategies to communicate wants and needs effectively to different conversational partners, maintain safety and participate socially in functional living environment- NOT MET Treatment Activities Word finding tasks Assessment Patient Response to Treatment Excellent Rehab Potential Excellent Impairments Identified Expressive language,Receptive language Progress Towards Goals Good Progress Assessment of Overall Progress Improving Assessment of Improvement Pt reports he saw an oncologist last . He demonstrated difficulties communicating specific details about appointment, however it sounds like he will be starting treatment consisting of a meedication for the tumor , however they have to see if his insurance will cover it. He was able to self correct x3 when communicating numbers, such as what [place] ferry to come to therapy. He was able to state the month and day of the week with use of counting strategy (e.g., stating all the months of the year and days of the week). He required cue to initate stating days of the week. He is able to speek in full sentences, however language appears vague/general at times . He reports continued difficulties texting d/t writing deficits and states spell check doesn't help at times. He states he is currently working. ST educated Pt on word finding strategies such as circumlocution/describing a word. ST assessed use of word finding strategies during picture naming task in order to promote carryover. He was able to name pictures with about 70% accuracy requiring mild-mod semantic/phonemic cues. He benefited most from cues to describe details about the picture (semantic features such as color, shape, use) and phonemic cues of first letter. He benefited from practice describing details in a picture. He exhibited occasional paraphasias, however able to self correct. Pt has good awareness with his language errors, however delay in self correcting at times. ST encouraged Pt to practice using circumlocution outside of therapy when talking with others. Pt verbalized understanding. NOTE: Patient discharged per his request via phone. He states he has too much going on right now. ST communicated to him importance of speech therapy at this time, however Pt continued to want to discharge. ST recommended Pt return when he is ready to work on speech. The above note is from the last time he was seen.
== END 2024-05-28 10:46 ==
LOC: SP 09:00
PROVIDERS: PCP Nurse Practitioner Family; Referring Provider Emergency Medicine; Visit Provider Emergency Medicine
DX: I63.81 Other cerebral infarction due to occlusion or stenosis of small artery (principal); F80.1 Expressive language disorder
CPT/HCPCS: 92507; 92523